=== PATIENT | female | born 1975 | race Two or more races ===

== ENCOUNTER 2016-09-15 05:02 | Day surgery (SDC) | payer OTHER ==
[2016-09-12 17:09] VITALS: BMI 28.8
[2016-09-15] MEDS ORDERED: PROPOFOL 20 ML ONE ×2 (12:06)
[2016-09-15] MEDS ORDERED: MIDAZOLAM HCL 2 MG/2 ML SINGLE DOSE VIAL ONE (12:06)
[2016-09-15] MEDS ORDERED: ACETAMINOPHEN INJECTION 100 ML IVPB ONE (12:52)
--- NOTE | 2016-09-15 13:34 | HP ---
History & Physical Update - History History: No Change - Physical Physical: No Change - Assessment Assessment: No Change - Plan Plan: No Change (abnormal uterine bleeding - for HTA endometrial ablation)
[2016-09-15] MEDS ORDERED: ACETAMINOPHEN 325 MG TABLET (FP) PO PRN (13:35)
[2016-09-15] MEDS ORDERED: LACTATED RINGERS SOLUTION 1,000 ML IV SCH (13:45)
[2016-09-15] MEDS ORDERED: ONDANSETRON 4 MG/2 ML VIAL IVPUSH PRN (14:47)
[2016-09-15] MEDS ORDERED: oxyCODONE HCL 5 MG TABLET PO PRN (14:47)
[2016-09-15] MEDS: HYDROmorphone HCL CARPU-JECT 1 MG/1 ML DISP.SYRIN IVPUSH PRN ×4 (15:22→15:52)
[2016-09-15] MEDS ORDERED: HYDROmorphone HCL CARPU-JECT 2 MG/1 ML DISP.SYRIN ONE (15:23)
[2016-09-15 16:58] VITALS: TEMP 98
[2016-09-15] MEDS ORDERED: oxyCODONE HCL 5 MG TABLET ONE (17:13)
[2016-09-15 19:31] VITALS: BP 136/77; PULSE 71
--- NOTE | 2016-09-19 12:58 | OP ---
Operative Note - Note: Operative Date: 09/15/16 Pre-Operative Diagnosis: Abnormal uterine bleeding Operation: HTA endometrial ablation Post-Operative Diagnosis: Same as Pre-op Surgeon: Belinda Echeverria Anesthesiologist/POLYMERIZATION ENGINEER: Lisa Jacobs MD Anesthesia: General Specimens Removed: none Estimated Blood Loss (mls): 5 Operative Report Dictated: Yes
--- NOTE | 2016-09-20 09:47 | OP ---
DATE OF OPERATION: 09/15/2016 PREOPERATIVE DIAGNOSIS: Abnormal uterine bleeding. POSTOPERATIVE DIAGNOSIS: Abnormal uterine bleeding. PROCEDURE: Hydrothermal endometrial ablation. SURGEON: Belinda Echeverria DO RESIDENTIAL SPECIALIST: None. ANESTHESIA: General, by Lisa Jacobs MD. ESTIMATED BLOOD LOSS: Five milliliters. COMPLICATIONS: None. SPECIMENS: None. FINDINGS: Normal female genital anatomy. BRIEF HISTORY AND PROCEDURE: The patient is a 40-year-old female who had been seen in the office with the complaint of abnormal uterine bleeding. Had a benign endometrial biopsy and normal workup. The patient failed hormonal therapy and elected to undergo a surgical procedure. Consents for the endometrial ablation were signed in the office and then were reconfirmed upon admission to the hospital on September 15. The patient was then taken back to the operating room where she was given general anesthesia and placed in the dorsal lithotomy position and prepped and draped in the usual sterile fashion. A hard timeout was performed. A speculum was placed in the vagina and then the cervix was grasped with a tenaculum and dilated to accommodate a diagnostic hysteroscope. The hysteroscope was placed up to the fundus and bilateral tubal ostia were noted. No intrauterine abnormalities were appreciated at this time. Next, the ablation procedure was completed in the usual fashion with one episode of the device shutting down secondary to concern for fluid loss. After repositioning of the hysteroscope further into the cervix, a cervical seal was better achieved and the device was able to proceed with the ablation without any issues. After the ablation was completed, another diagnostic hysteroscopy was completed. No evidence of intrauterine or endocervical trauma was apparent. All instruments were removed from the vagina. Sponge and instrument counts were reported to be correct. The patient was then awoken from anesthesia and recovering in stable condition in the PACU after the procedure. BELINDA ECHEVERRIA DO /[id number]
== END 2016-09-15 18:50 | disposition home or self-care (01) ==
LOC: JASU-SURG 05:02
PROVIDERS: ATTEND Obstetrics & Gynecology
PROC: 0U5B8ZZ Destruction of Endometrium, Via Natural or Artificial Opening Endoscopic (ICD-10-PCS; principal; 2016-09-15 12:00)
DX: N93.9 Abnormal uterine and vaginal bleeding, unspecified (principal)
CPT/HCPCS: 94760

== ENCOUNTER 2021-09-29 07:16 | Day surgery (SDC) | payer BC ==
[2021-09-28 15:18] VITALS: BMI 31.4
[2021-09-29 08:35] VITALS: PULSE 70; TEMP 97.7
[2021-09-29 09:03] VITALS: BP 114/74
== END 2021-09-29 09:40 | disposition home or self-care (01) ==
LOC: FASU-ENDO 07:16
PROVIDERS: ATTEND Internal Medicine Gastroenterology
PROC: 0DJD8ZZ Inspection of Lower Intestinal Tract, Via Natural or Artificial Opening Endoscopic (ICD-10-PCS; principal; 2021-09-29 08:06)
DX: Z12.11 Encounter for screening for malignant neoplasm of colon (principal); Z83.71 Family history of colonic polyps
CPT/HCPCS: 84703